=== PATIENT | female | born 1970 | race Caucasian/White ===

== ENCOUNTER 2020-05-08 17:16 | Emergency (ER) | payer OTHER, SELFPAY ==
[2020-05-08 17:17] VITALS: BP 135/92; RESP 115; TEMP 36.2; O2SAT 99
[2020-05-08 18:04] LABS: Add Urine Microscopic? YES; Appearance Urine Cloudy (Clear); Bacteria Urine 4+ /hpf; Bilirubin Urine Negative (Negative); Blood Urine Negative (Negative); Color Urine Amber (Yellow); Glucose Urine UA Negative (Negative); Ketones Urine Negative (Negative); Leukocyte Esterase Ur 2+ LEU/UL (Negative); Mucus Urine Heavy /lpf; Nitrate Urine Positive (Negative); Protein Urine 1+ mg/dL (Negative); Specific Grav Ur 1.027 (1.001-1.035); Squamous Epithelial Cell Urine Many /hpf (Few); Urobilinogen Urine Negative mg/dL (<2.0); WBC Urine >75 /hpf
--- NOTE | 2020-05-08 18:12 | ED.ABDPAIN ---
HPI - Abdominal Pain General Chief Complaint: Urogenital-Female Stated Complaint: Kidney Infection Time Seen by Provider: 05/08/20 17:53 Source: patient Mode of arrival: ambulatory Limitations: no limitations History of Present Illness HPI narrative: Patient 49-year-old female who presents to emergency department for evaluation of burning with urination and vaginal irritation for the last several days with foul odor. Patient would like to be evaluated for possible vaginal infection. Patient notes some discomfort in the abdomen. Patient denies fever chills nausea vomiting. Patient is not been seen for this complaint nor she taken anything for her symptoms Related Data Allergies Allergy/AdvReac Type Severity Reaction Status Date / Time No Known Allergies Allergy Mild Unverified 05/08/20 17:23 Review of Systems Review of Systems: All systems reviewed & are unremarkable except as noted in HPI and below PMFSH Social History Social History (Updated 05/08/20 @ 18:12 by Zechariah Donnelly PA-C) Smoking status: Never smoker Gender identity (if verbalized by the patient): Female Exam Narrative: Exam Narrative: GENERAL: Well-appearing, well-nourished, and in no acute distress. HEAD: Normocephalic, atraumatic. EYES: PERRLA and EOMI. ENT: Nares clear, no rhinorrhea or epistaxis. Mucous membranes moist. CHEST: Clear to auscultation. No respiratory distress. No wheezes rales or rhonchi HEART: Regular rate and rhythm. No murmur heard. Normal peripheral pulses. ABDOMEN: Soft, nontender, nondistended EXTREMITIES: Normal range of motion. No edema. SKIN: Warm, dry, no rash. NEURO: No focal deficits. Alert and oriented x3. PSYCH: Normal mood and affect. Course Course Emergency Course: Patient in the room at this time aware of case findings treatment plan and diagnosis agreeing to follow-up as instructed or to return if symptoms worsen or concerns patient is afebrile nontoxic-appearing no distress urinalysis revealed a urinary tract infection patient will be treated for this patient was also tested for STDs and will be given gynecological referral and provided with reasons to return and is felt appropriate for outpatient reevaluation Vital Signs Vital signs: Vital Signs Temperature 97.1 F L 05/08/20 17:17 Respiratory Rate 115 H 05/08/20 17:17 Blood Pressure 135/92 H 05/08/20 17:17 Pulse Oximetry 99 05/08/20 17:17 Temperature 97.1 F L 05/08/20 17:17 Respiratory Rate 115 H 05/08/20 17:17 Blood Pressure 135/92 H 05/08/20 17:17 Pulse Oximetry 99 05/08/20 17:17 MDM - Abdominal Pain MDM Narrative Medical decision making narrative: Patient presented with lower abdominal discomfort vaginal symptoms was evaluated will be treated for urinary tract infection felt appropriate for outpatient reevaluation given reasons to return Lab Data Labs: Lab Results 05/08/20 05/08/20 05/08/20 Range/Units 17:36 18:31 18:31 Urine Color Beata (Yellow) Urine Appearance Cloudy H (Clear) Urine pH 5.0 (5.0-9.0) Ur Specific [place] 1.027 (1.001-1.035) Urine Protein 1+ H (Negative) mg/dL Urine Glucose (UA) Negative (Negative) mg/dL Urine Ketones Negative (Negative) mg/dL Ur Blood (Man) Negative (Negative) Urine Nitrate Positive H (Negative) Urine Bilirubin Negative (Negative) Urine Urobilinogen Negative (<2.0) mg/dL Leukocyte Esterase Rfl 2+ H (Negative) CHRISTOPHER/UL Urine RBC 6-10 H (0-2) /hpf Urine WBC >75 H /hpf Ur Squamous Epith Cells Many H (Few) /hpf Urine Bacteria 4+ H /hpf Urine Mucus Heavy H /lpf C.trachomatis RNA (TMA) Pending N.gonorrhoeae RNA (TMA) Pending Trichomonas Direct ID Negative (Negative) UCG Bedside Result Negative Reference Range: Negative Discharge Plan Discharge Clinical Impression: Urinary tract infection Patient Disposi
[2020-05-08] MEDS: cefTRIAXone 1 GM VIAL IM (19:03)
--- NOTE | 2020-05-08 19:04 | PC.NURSE ---
Lidocaine used for Rocephin IM injection
[2020-05-08 19:42] VITALS: BP 131/93; PULSE 117; RESP 18; O2SAT 96
== END 2020-05-08 19:41 | disposition home or self-care (01) ==
PROVIDERS: Emergency Medicine; Emergency Medicine Emergency Medical Services; Emergency Provider Emergency Medicine
DX: N39.0 Urinary tract infection, site not specified (principal)
CPT/HCPCS: 81001; 81025; 87070; 87077; 87086; 87088; 87186; 87491; 87591; 87808; 96372; 99284; J0696

== ENCOUNTER 2020-06-17 19:03 | Emergency (ER) | payer OTHER, SELFPAY ==
[2020-06-17 19:05] VITALS: BP 113/70; PULSE 104; RESP 20; TEMP 35.7; O2SAT 95
[2020-06-17 19:43] LABS: Add Urine Microscopic? YES; Appearance Urine Cloudy (Clear); Bacteria Urine Trace /hpf; Bilirubin Urine Negative (Negative); Blood Urine 3+ (Negative); Color Urine Amber (Yellow); Glucose Urine UA Negative (Negative); Ketones Urine Negative (Negative); Leukocyte Esterase Ur 2+ LEU/UL (Negative); Mucus Urine Heavy /lpf; Nitrate Urine Negative (Negative); Protein Urine 2+ mg/dL (Negative); Specific Grav Ur 1.023 (1.001-1.035); Squamous Epithelial Cell Urine Many /hpf (Few); WBC Urine 31-50 /hpf
--- NOTE | 2020-06-17 22:35 | ED.FEMALEGU ---
HPI - Female Genitourinary General Chief complaint: Urogenital-Female Stated complaint: frequent burning urination Time Seen by Provider: 06/17/20 22:09 Source: patient Mode of arrival: ambulatory Limitations: no limitations History of Present Illness HPI Narrative: 49-year-old female comes into the emergency department with complaints of burning tingling and increased frequency with urination. Patient is also endorsing some blood in her urine as well as pelvic pain. Patient states that this has been going on for the last couple of days. She states that she was seen here for this previously but never followed up and never took her medications. Patient also inquires about an STD test that was performed while she was here. Related Data Allergies Allergy/AdvReac Type Severity Reaction Status Date / Time No Known Allergies Allergy Mild Unverified 05/08/20 17:23 Review of Systems Review of Systems: Narrative: CONSTITUTIONAL: Denies fever, chills, or sweats. EYES: Denies visual changes, redness, or discharge. ENT: Denies rhinorrhea, congestion, sore throat, or otalgia. CARDIOVASCULAR: Denies chest pain, palpitations, or edema. RESPIRATORY: Denies cough or dyspnea. GASTROINTESTINAL: Denies abdominal pain, nausea, vomiting, or diarrhea. GENITOURINARY: Endorses dysuria and hematuria. SKIN: Denies rash or itching. MUSCULOSKELETAL: Denies back pain, joint pain, or myalgia. NEUROLOGIC: Denies headache, numbness, dizziness, or weakness. PSYCHIATRIC: Denies anxiety or depression. [facility] Social History Social History Smoking status: Never smoker Gender identity (if verbalized by the patient): Female Exam Narrative: Exam Narrative: GENERAL: Well-appearing, well-nourished, and in no acute distress. HEAD: Normocephalic, atraumatic. EYES: PERRLA and EOMI. ENT: Nares clear, no rhinorrhea or epistaxis. Mucous membranes moist. NECK: Supple. No adenopathy or masses. No carotid bruits or JVD CHEST: Clear to auscultation. No respiratory distress. No wheezes rales or rhonchi HEART: Regular rate and rhythm. No murmur heard. Normal peripheral pulses. ABDOMEN: Soft, nontender, nondistended, normal active bowel sounds. EXTREMITIES: Normal range of motion. No edema. SKIN: Warm, dry, no rash. NEURO: No focal deficits. Alert and oriented x3. PSYCH: Normal mood and affect. Course Vital Signs Vital signs: Vital Signs Temperature 35.7 C L 06/17/20 19:05 Pulse Rate 104 H 06/17/20 19:05 Respiratory Rate 20 06/17/20 19:05 Blood Pressure 113/70 06/17/20 19:05 Pulse Oximetry 95 06/17/20 19:05 Temperature 35.7 C L 06/17/20 19:05 Pulse Rate 104 H 06/17/20 19:05 Respiratory Rate 20 06/17/20 19:05 Blood Pressure 113/70 06/17/20 19:05 Pulse Oximetry 95 06/17/20 19:05 MDM - Female Genitourinary MDM Narrative Medical decision making narrative: In brief this 49-year-old female came into the emergency department with complaints of dysuria and hematuria. Review of the patient's urinary specimen does show signs of a likely infection. Review of the computer data shows that the patient was negative for common STDs that were tested for. Her recent urine culture and April did show a infection with Klebsiella pneumonia which was intermediate resistance to Macrobid. We will treat with Bactrim in favor of this. Patient recommended to follow-up with her primary care physician. Differential Diagnosis Differential diagnosis: Likely urinary tract infection, bacterial vaginosis, trichomoniasis, cervicitis, ovarian cyst, vaginitis, ruptured ovarian cyst, cyst of Bartholin's gland and cystitis Lab Data Labs: Lab Results 06/17/20 Range/Units 19:27 Urine Color Beata (Yellow) Urine Appearance Cloudy H (Clear) Urine pH 5.0 (5.0-9.0) Ur Specific [place] 1.023 (1.001-1.035) Urine Protein 2+ H (Negative) mg/dL Urine Glucose (UA) Negative (Negative) mg/dL
[2020-06-17 23:00] VITALS: BP 117/68; PULSE 84; RESP 18; O2SAT 98
== END 2020-06-17 23:00 | disposition home or self-care (01) ==
PROVIDERS: Emergency Medicine; Emergency Provider Emergency Medicine
DX: N30.01 Acute cystitis with hematuria (principal)
CPT/HCPCS: 81001; 87077; 87086; 87088; 87186; 99283; A9270

== ENCOUNTER 2020-08-03 22:00 | Emergency (ER) | payer OTHER, SELFPAY ==
[2020-08-03 22:19] VITALS: BP 131/82; PULSE 104; RESP 18; TEMP 36.5; O2SAT 96
[2020-08-03 23:52] VITALS: BP 117/80; PULSE 89; RESP 19; O2SAT 99
--- NOTE | 2020-08-03 23:56 | ED.GENADULT ---
HPI - General Adult General Chief complaint: Unspecified Stated complaint: covid exposure, stuffy nose Time Seen by Provider: 08/03/20 23:51 Source: RN notes reviewed History of Present Illness HPI narrative: Patient presents to emergency department from home for possible COVID-19. Patient states she lives at home with her daughter who is been tested for COVID-19 patient states she has been having rhinorrhea for the past day she denies any fevers or chills cough chest pain shortness of breath abdominal pain nausea vomiting diarrhea or any other symptoms. Denies loss of taste or smell Related Data Home Medications Medication Instructions Recorded Confirmed No Home Medications 08/03/20 08/03/20 Allergies Allergy/AdvReac Type Severity Reaction Status Date / Time No Known Allergies Allergy Mild Verified 08/03/20 22:22 Review of Systems Review of Systems: Narrative: Gen.: Denies fevers or chills Eyes: Denies eye pain or visual change ENT: Reports rhinorrhea Respiratory: Denies shortness of breath or cough CV: Denies chest pain or palpitations GI: Denies abdominal pain nausea, emesis or diarrhea Musculoskeletal: Denies back pain or muscle pain Neuro: Denies numbness, tingling, weakness or focal weakness Skin: Denies rash Except as documented, all other systems reviewed and negative PMFSH Past Medical History Medical History (Updated 08/03/20 @ 23:58 by Nito Perez DO) Patient denies significant medical history Social History Social History Smoking status: Never smoker Gender identity (if verbalized by the patient): Female Exam Narrative: Exam Narrative: APPEARANCE: No acute distress, nontoxic, resting in bed EYES: EOMI HEENT: Normocephalic, atraumatic, nares patent RESPIRATORY: No respiratory distress Clear to auscultation bilaterally with no rhonchi wheezing or rales. CARDIOVASCULAR: Regular rate and rhythm without murmurs rubs or gallops. ABDOMINAL: Soft, nontender, nondistended, no rebound or guarding MUSCULOSKELETAl: Moves all extremities. No clubbing, cyanosis or edema. NEURO: Awake and alert. Following commands, speech normal, no focal deficits SKIN:: Warm, dry. No rashes lesions or abrasions PSYCHIATRIC: Normal affect/mood, Course Course Emergency Course: Discussed with patient results of workup and diagnosis. Discussed need for follow-up with primary care, proper use of medication, and reasons to return to the emergency department. Patient understands and agrees to current treatment plan Vital Signs Vital signs: Vital Signs Temperature 97.7 F 08/03/20 22:19 Pulse Rate 104 H 08/03/20 22:19 Respiratory Rate 18 08/03/20 22:19 Blood Pressure 131/82 08/03/20 22:19 Pulse Oximetry 96 08/03/20 22:19 Temperature 97.7 F 08/03/20 22:19 Pulse Rate 104 H 08/03/20 22:19 Respiratory Rate 18 08/03/20 22:19 Blood Pressure 131/82 08/03/20 22:19 Pulse Oximetry 96 08/03/20 22:19 Medical Decision Making Vital Signs Vital Signs: Vital Signs Temperature 97.7 F 08/03/20 22:19 Pulse Rate 104 H 08/03/20 22:19 Respiratory Rate 18 08/03/20 22:19 Blood Pressure 131/82 08/03/20 22:19 Pulse Oximetry 96 08/03/20 22:19 Temperature 97.7 F 08/03/20 22:19 Pulse Rate 104 H 08/03/20 22:19 Respiratory Rate 18 08/03/20 22:19 Blood Pressure 131/82 08/03/20 22:19 Pulse Oximetry 96 08/03/20 22:19 Discharge Plan Discharge Clinical Impression: Contact with and (suspected) exposure to covid-19 Patient Disposition: Home, Self-Care Condition: Stable Instructions: Antibiotic Form, COVID-19 (Coronavirus Disease 2019) (ED) Additional Instructions: Return for shortness of breath fever or any other symptoms of concern. You need to remain on self-isolation until the results of your COVID-19 test are returned Prescriptions: No Action No Home Medications RF: 0 Follow-up
[2020-08-04 19:43] LABS: SARS-CoV-2 RNA PCR Negative
== END 2020-08-04 00:23 | disposition home or self-care (01) ==
LOC: ANHED 08-04
PROVIDERS: Emergency Provider Emergency Medicine
DX: J34.89 Other specified disorders of nose and nasal sinuses (principal); Z20.822 Contact with and (suspected) exposure to COVID-19
CPT/HCPCS: 99283; C9803; U0003; U0005

== ENCOUNTER 2023-05-26 13:58 | Outpatient (CLI) | payer OTHER, SELFPAY ==
--- NOTE | 2023-05-26 14:16 | ECG_ITS ---
Measurements Intervals [place] Rate: 76 P: 31 VT: 151 QRS: -10 QRSD: 102 T: 22 QT: 421 QTc: 476 Interpretive Statements SINUS RHYTHM POOR R-WAVE PROGRESSION BORDERLINE LEFTWARD AXIS BORDERLINE ECG NO PREVIOUS ECG AVAILABLE FOR COMPARISON Electronically Signed On 05-27-2023 7:00:48 DIVORCE MEDIATOR by Melo Evangelista M.D.
[2023-05-26 15:04] LABS: Basophils Absolute Auto 0.1 K/mm3 (0.0-0.1); Basophils Percent Auto 0.7 % (0.2-1.2); Eosinophils Absolute Auto 0.5 K/mm3 (0-0.3); Eosinophils Percent Auto 3.9 % (0-4.4); Hematocrit 41.1 % (37.0-47.0); Hemoglobin 13.5 g/dL (12.0-15.0); Immature Granulocyte Absolute 0.06 K/mm3 (0.00-0.031); Immature Granulocyte Percent A 0.5 % (0-0.5); Lymphocytes Absolute Auto 4.03 K/mm3 (0.9-3.2); Mean Corpuscular HGB Conc 32.8 g/dl (32-36); Mean Corpuscular Hemoglobin 29.9 pg (26-34); Mean Corpuscular Volume 91.1 fl (80-100); Mean Platelet Volume 10.9 fl (7.4-10.4); Monocytes Absolute Auto 0.6 K/mm3 (0.1-0.6); Monocytes Percent Auto 5.1 % (2.6-8.5); Neutrophils Absolute Auto 6.9 K/mm3 (1.3-6.7); Neutrophils Percent Auto 56.8 % (45.5-73.1); Platelet Count Result 300 k/mm3 (150-375); Red Blood Count 4.51 M/mm3 (4.2-5.4); Red Cell Distribution Width 12.6 % (11.5-14.5); White Blood Count 12.2 K/mm3 (4.5-10.0)
[2023-05-26 15:12] LABS: Anion Gap 8 mmol/L (8-16); Blood Urea Nitrogen 8 mg/dL (7-17); Calcium 9.3 mg/dL (8.4-10.2); Carbon Dioxide 25 mmol/L (22-30); Chloride 106 mmol/L (98-107); Estimated Glomerular Filt Rate > 60; Glucose 96 mg/dL (65-110); Sodium 139 mmol/L (137-145)
[2023-05-26 15:43] LABS: Appearance Urine Clear (Clear); Bilirubin Urine Negative (Negative); Blood Urine Negative (Negative); Color Urine Yellow (Yellow); Glucose Urine UA Negative (Negative); Ketones Urine Negative (Negative); Leukocyte Esterase Ur Negative LEU/UL (Negative); Nitrate Urine Negative (Negative); Protein Urine Negative (Negative); Urobilinogen Urine 0.2 mg/dL (<2.0)
[2023-05-26 15:53] LABS: Add Urine Microscopic? NO
== END 2023-05-26 13:59 | disposition home or self-care (01) ==
LOC: ANHLAB 14:00
PROVIDERS: PCP Family Medicine; Visit Provider Orthopaedic Surgery
DX: R53.83 Other fatigue (principal); I10 Essential (primary) hypertension; M16.11 Unilateral primary osteoarthritis, right hip; R94.31 Abnormal electrocardiogram [ECG] [EKG]
CPT/HCPCS: 36415; 80048; 81003; 85025; 93005

== ENCOUNTER 2023-06-09 12:35 | Outpatient (CLI) | payer OTHER, SELFPAY ==
--- NOTE | ~2023-06-09 | CT_ITS ---
EXAMINATION: CT hip RT wo con DATE: 06/09/2023 12:58 INDICATION: Right hip osteoarthritis. Surgical planning. TECHNIQUE: Computed tomography (CT) of the right hip was performed without intravenous contrast. Auto mated exposure control and iterative reconstruction technique were employed. The dose-length product was 463.21 mGy-cm. COMPARISON: Pelvis and right hip radiographs 05/26/2023 FINDINGS: There is a 2.6 cm cyst in right ovary, likely benign. Bone alignment is normal. No fracture . There is advanced right hip osteoarthritis including bone volume loss of the acetabulum. IMPRESSION: 1. Advanced right hip osteoarthritis. Reviewed, dictated and finalized at location A. [employer] OPERATOR CHIEF
== END 2023-06-09 12:36 | disposition home or self-care (01) ==
PROVIDERS: PCP Family Medicine; Visit Provider Orthopaedic Surgery
DX: M16.11 Unilateral primary osteoarthritis, right hip (principal)
CPT/HCPCS: 73700

== ENCOUNTER 2023-07-25 13:42 | Outpatient (CLI) | payer OTHER, SELFPAY ==
[2023-07-25 15:43] LABS: Appearance Urine Clear (Clear); Bilirubin Urine Negative (Negative); Blood Urine Negative (Negative); Color Urine Yellow (Yellow); Glucose Urine UA Negative (Negative); Ketones Urine Negative (Negative); Leukocyte Esterase Ur Negative LEU/UL (Negative); Nitrate Urine Negative (Negative); Protein Urine Negative (Negative); Urobilinogen Urine 0.2 mg/dL (<2.0)
[2023-07-25 15:51] LABS: Basophils Absolute Auto 0.1 K/mm3 (0.0-0.1); Basophils Percent Auto 0.6 % (0.2-1.2); Eosinophils Absolute Auto 0.4 K/mm3 (0-0.3); Eosinophils Percent Auto 3.2 % (0-4.4); Hematocrit 41.9 % (37.0-47.0); Hemoglobin 13.3 g/dL (12.0-15.0); Immature Granulocyte Absolute 0.06 K/mm3 (0.00-0.031); Immature Granulocyte Percent A 0.5 % (0-0.5); Lymphocytes Absolute Auto 5.08 K/mm3 (0.9-3.2); Lymphocytes Percent Auto 40.3 % (18.3-44.2); Mean Corpuscular HGB Conc 31.7 g/dl (32-36); Mean Corpuscular Hemoglobin 29.4 pg (26-34); Mean Corpuscular Volume 92.7 fl (80-100); Mean Platelet Volume 10.8 fl (7.4-10.4); Monocytes Absolute Auto 0.8 K/mm3 (0.1-0.6); Monocytes Percent Auto 6.7 % (2.6-8.5); Neutrophils Absolute Auto 6.1 K/mm3 (1.3-6.7); Neutrophils Percent Auto 48.7 % (45.5-73.1); Platelet Count Result 331 k/mm3 (150-375); Red Blood Count 4.52 M/mm3 (4.2-5.4); Red Cell Distribution Width 12.9 % (11.5-14.5); Specific Grav Ur 1.031 (1.001-1.035); White Blood Count 12.6 K/mm3 (4.5-10.0)
[2023-07-25 15:52] LABS: Add Urine Microscopic? NO
[2023-07-25 15:54] LABS: Albumin Level 4.5 g/dL (3.5-5.1); Anion Gap 9 mmol/L (4-12); Blood Urea Nitrogen 18 mg/dL (7-17); Calcium 9.3 mg/dL (8.4-10.2); Carbon Dioxide 25 mmol/L (22-30); Chloride 102 mmol/L (98-107); Estimated Glomerular Filt Rate > 60; Glucose 127 mg/dL (65-110); Potassium 3.4 mmol/L (3.4-5.0); Sodium 136 mmol/L (137-145)
[2023-07-25 15:56] LABS: Hemoglobin A1C 6.1 % (<5.7)
[2023-07-25 15:58] LABS: Prothrombin Time 13.5 Seconds (11.1-14.7)
[2023-07-25 15:59] LABS: Partial Thromboplastin Time 30.1 Seconds (22.3-36.8)
[2023-07-25 16:01] LABS: Urine Cotinine NEGATIVE
[2023-07-25 16:55] LABS: MRSA (PCR) NOT DETECTED (NOT DETECTE)
== END 2023-07-25 13:43 | disposition home or self-care (01) ==
LOC: ANHSURGERY 13:48
PROVIDERS: PCP Family Medicine; Visit Provider Orthopaedic Surgery
DX: M16.11 Unilateral primary osteoarthritis, right hip (principal); Z01.818 Encounter for other preprocedural examination
CPT/HCPCS: 80048; 80307; 81003; 82040; 83036; 85025; 85610; 85730; 86850; 86900; 86901; 87641

== ENCOUNTER 2023-08-04 18:56 | Observation (INO) | payer OTHER, SELFPAY ==
[2023-07-25 14:01] VITALS: BMI 34.2
--- NOTE | 2023-07-25 14:26 | PC.NURSE ---
Addendum entered by Harriet Jones RN 07/25/23 14:52: TYPO FOR SURGERY DATE, SHOULD READ 08/03/23. PT RELAYS UNDERSTANDING. Original Note: Report to the Outpatient Waiting Room, entrance under the green pavilion located off [facility], at time _6:00AM on date ___07/25/23____. Planned Procedure Time: __7:30AM . Time changes happen often and if your time is changed the preop area will call you the afternoon before. - You and your visitor will be asked to self-screen and do not enter if you have any COVID symptoms. - A mask is optional within the hospital at this time. Patients may have clear liquids (water, carbonated beverages, clear teas, apple juice) until 3 hours prior to surgery with a maximum of 20 ounces. - No food from midnight until time of surgery. Take the following medications with a SIP of water the morning of surgery: ___BUPROPION DO NOT STOP ANY OF YOUR OTHER PRESCRIPTION MEDICATIONS PRIOR TO SURGERY ?EXCEPT THE FOLLOWING Medications to discontinue per physician ____HOLD MELOXICAM & VITAMINS/SUPPLEMENTS 7 DAYS PRE-OP PER DR SHEPPARD LAST DOSE 07/26/23 Please no make-up, nail japanese, hairspray, perfume, deodorant, or body powder the day of surgery. No jewelry (including any body piercings) or valuables the day of surgery, leave them at home. Please take a shower or bath the night before, or the morning of, surgery with an antibacterial soap. Wear comfortable, loose fitting clothing. - Jewelry must be removed prior to entering the operating room. Rings and piercings that are not removed may be cut off. - The hospital will not accept responsibility for valuables. - Please leave all valuables, including medications, at home the day of surgery. If you are going home after surgery, a licensed tank wagon driver must drive you home. - NO public transportation without another adult if you receive anesthesia. - We recommend that an adult stay with you for 24 hours following discharge. - We also recommend that you do not drive, make important decision, drink alcoholic beverages, or take any drugs that were not prescribed by your health care provider for at least 24 hours after your discharge time. Follow any additional instructions given to you from your surgeon. If you or anyone in your household have experienced Covid symptoms in the past week, please notify your surgeon or the nurse liaison at the phone number below for possible testing. Telephone instructions given to ____PATIENT and asked if any additional questions and then verbalized understanding. Patient advised to call surgeon office or pre surgery nurse liaison [phone] if any additional questions.
[2023-07-25 14:51] VITALS: BP 115/71; PULSE 99; RESP 16; TEMP 37.1; O2SAT 99
[2023-08-03] VITALS (16 sets, daily range): BP systolic 99–149; BP diastolic 57–98; PULSE 76–99; RESP 12–20; TEMP 36.2–36.9; O2SAT 93–100
[2023-08-03] MEDS: ACETAMINOPHEN 500 MG TABLET 1000 MG PO (06:35)
[2023-08-03] MEDS: LACTATED RINGERS 1,000 ML 30 ML IV CONT ×2 (06:50→10:40)
--- NOTE | 2023-08-03 06:56 | WPDANESEPPF ---
Anes - Initial Pre Proc Eval Procedure: Operation Date: 08/03/23 07:30 Proposed Procedures p Right Total Hip Arthroplasty - Mayo Montalvo MD Date/Time: 08/03/23 06:56 Surgeon: Mayo Montalvo MD Pre Op Diagnosis: Right Hip DJD Patient Data Age: 53 Gender: F Height: 1.68 m Weight: 97.15 kg Last Vital Signs Temp 36.9 C 08/03/23 06:40 Pulse 99 08/03/23 06:40 Resp 16 08/03/23 06:40 BP 149/89 H 08/03/23 06:40 Pulse Ox 97 08/03/23 06:40 O2 Del Method Room Air 08/03/23 06:40 Allergies Allergy/AdvReac Type Severity Reaction Status Date / Time No Known Allergies Allergy Mild Verified 08/03/23 06:25 Home Medications Medication Instructions Recorded Confirmed Type meloxicam 15 mg tablet 15 mg PO DAILY #90 tabs 12/28/22 08/03/23 Rx cyclobenzaprine 10 mg tablet See Rx Instructions .Route 05/30/23 08/03/23 Rx .COMPLEX #90 tabs chlorhexidine gluconate 4 % 1 applic topical ONCE #237 mL 07/11/23 08/03/23 Rx topical liquid (Hibiclens) bupropion HCl 150 mg 24 hr tablet, 150 mg PO QAM 07/25/23 08/03/23 History extended release (Wellbutrin XL) magnesium 250 mg tablet 500 mg PO DAILY 07/25/23 08/03/23 History turmeric 400 mg capsule 800 mg PO DAILY 07/25/23 08/03/23 History Patient hx anesthesia problems: none Family hx anesthesia problems: none Results Review: All pre-operative results and documents have been reviewed as part of the pre-operative evaluation. [facility] Past Medical History Medical History Arthritis Bilateral carpal tunnel syndrome Depression Irritable bowel syndrome Left lateral epicondylitis Osteoarthritis Right hip pain Surgical History Surgical History History of History of hip surgery S/P total right hip arthroplasty Family History Family History Father Alcoholism Hypertension Heart disease Social History Social History Smoking status: Never smoker Alcohol intake: former Alcohol use details: QUIT ALCOHOL ~2018 Substance use: never Substance use type: crack/cocaine and methamphetamine Other substance usage details: HOSP OCTOBER 2022 METH ADDICTION.USED COCAINE PRIOR. Lack of Transportation: No Lack of Food: Never True Current Housing: I Have Housing Concerned About Future Housing: No Difficulty Paying Gas/Electric Bills: No Difficulty Paying for Meds: No Currently Unemployed: No Education: Don't Know Difficulty w/ Childcare or Family Care: No Living arrangements: with roommate(s) Additional living arrangements comments: S.O./ROOMMATE Occupation/Education: unemployed Gender identity (if verbalized by the patient): Female Spiritual care concerns: No Agree to blood products: Yes Anes - Eval Final PreProcedure Day of Procedure 08/03/23 06:56 Patient weight: obese Heart: regular rate and rhythm Lungs: clear to auscultation Airway: Mallampati scale class II Neurological: alert and oriented Last oral intake: >/= 8 hours ASA classification: III Emergent: no Anesthetic plan: proceed Anesthesia type and monitoring: general ETT and standard monitoring Results Review: All pre-operative results and documents have been reviewed as part of the pre-operative evaluation. Informed Consent: The patient's anesthetic plan and its attendant risks and benefits were discussed with the patient/family/POA. Questions were solicited and answers provided to the satisfaction of the patient/family/POA.
[2023-08-03] MEDS: TRANEXAMIC ACID 1,000MG/ISO100 1,000 MG/100 ML BAG 200 MG IVPB (07:04)
--- NOTE | 2023-08-03 07:10 | WPDHPUPDATE1 ---
History and Physical Update Update Date/Time: 08/03/23 07:10 History and Physical has been reviewed, including an updated exam of the patient. There are NO changes in the patient's condition. Risks, benefits, and alternatives have been discussed and questions answered. Patient agrees to proceed with procedure.
[2023-08-03] MEDS: ceFAZolin 2 GM/D5W 50 ML 2 GM/50 ML BAG IVPB ×3 (07:30→23:44)
[2023-08-03] MEDS: SODIUM CHLORIDE 0.9% IV 37.7 ML, MORPHINE SULFATE INJ (*CRX) 2 MG, ROPivacaine HCL 1% 2... INFILTRATE (08:42)
[2023-08-03] MEDS: TRANEXAMIC ACID 1,000 MG/10 ML AMPUL 1000 MG IV PUSH (10:04)
--- NOTE | 2023-08-03 10:45 | W.PM.PROC2 ---
Procedure Note - Detailed Date of Procedure 08/03/23 Pre-op Diagnosis Right Hip DJD Post-op Diagnosis Same Procedure Performed R DEVAN Surgeon Mayo Montalvo MD Anesthesia General Description of Procedure THE PATIENT WAS TAKEN TO THE OPERATING ROOM IN STABLE CONDITION AND WAS PLACED IN THE LATERAL DECUBITUS AND THE RIGHT LOWER EXTREMITY WAS PREPPED AND DRAPED IN THE STERILE FASHION. INCISION WAS MADE IN THE POSTERIOR LATERAL SIDE OF THE HIP, DOWN TO THE FASCIA LAYER. THE FASCIA WAS INCISED. THE HIP WAS EXPOSED. THE SHORT EXTERNAL ROTATORS WERE EXPOSED. THERE A LOT OF SCAR TISSUE FROM HER PREVIOUS PROCEDURE. THE SCIATIC NERVE WAS IDENTIFIED. INCISION WAS MADE THROUGH THE SHORT EXTERNAL ROTATORS AND THE CAPSULE OF THE HIP JOINT. THE HIP WAS DISLOCATED. AN OSTEOTOMY WAS MADE TO THE FEMORAL NECK ABOUT 1 CM PROXIMAL TO THE LESSER TROCHANTER. THE ACETABULUM WAS EXPOSED. THERE WAS SEVERE DJD SEEN. BEGINNING WITH A 44 REAMER THE ACETABULUM WAS REAMED TO 51 MM. A 5I MM TRIAL WAS PLACED IN 35 DEG OF ABDUCTION AND ANTEVERSION WAS IN ALIGNMENT WITH THE TRANS ACETABULAR LIGAMENT. THE FIT WAS EXCELLENT. THE TRIAL WAS REMOVED. A 52 MM BIOMET G7 COMPONENT WAS THEN TAPPED IN TO PLACE IN 35 DEG OF ABDUCTION AND ANTEVERSION IN ALIGNMENT WITH THE TRANSVERSE ACETABULAR LIGAMENT. THE FIT WAS EXCELLENT. THE A DUAL MOBILITY LINER WAS THEN PLACED WITH EXCELLENT FIT. ACETABULAR LINER WAS PLACED AND CHECKED FOR STABILITY. NEXT THE FEMUR WAS PREPARED WITH INITIAL CANAL FINDER THEN SEQUENTIAL BROACHING WITH A TAPERLOC HIP SYSTEM, UNTIL AN 8 BROACH FIT WELL IN 15 OF ANTEVERSION. A 0 STANDARD OFFSET NECK WITH 36 MM HEAD AND DUAL MOBILITY TRIAL WAS PLACED. THE SHUCK TEST WAS EXCELLENT AND THE STABILITY IN FLEXION AND ROTATION WAS EXCELLENT. LEG LENGTHS WERE GROSSLY EQUAL. TRIALS WERE REMOVED. A BIOMET TAPERLOC 8 STEM WAS PLACED WITH A STANDARD OFFSET NECK. THE FIT WAS EXCELLENT IN 15 DEG OF ANTEVERSION. A 0 CERAMIC 36 MM FEMORAL HEAD WITH A DUAL MOBILITY POLYETHYLENE LINER WAS PLACED. THE HIP WAS TRIALED AND THE STABILITY WAS EXCELLENT WERE THE LEG LENGTHS AND THE SHUCK TEST. THE WOUND WAS IRRIGATED WITH STERILE BETADINE AND WATER FOR 3 MIN. THEN WASHED AGAIN. THE CAPSULE AND THE EXTERNAL ROTATORS WERE APPROXIMATED WITH NUMBER 1 VICRYL. THE FASCIA WITH No 2 QUIL AND THE SUB CUTANEOUS LAYER WITH 2-0 ABSORBABLE SUTURE WITH FRANCISCO TO APPROXIMATE THE SKIN. DERMABOND WAS PLACED AND STERILE DRESSING WAS APPLIED. PATIENT WAS PLACED BACK ON TO THE SUPINE POSITION AND WAS EXTUBATED Estimated Blood Loss 200 Complications No immediate complications Condition Stable Disposition PACU
[2023-08-03] MEDS: KETOROLAC 30 MG/ML VIAL (*BKC) IV PUSH (11:01)
--- NOTE | 2023-08-03 12:49 | ADMGEN ---
This patient, Kezia Murray, was admitted to 3 [facility] Surg Room 315-02. Patient/family oriented to hospital policies and general routines including ID bracelet, bed and alarms, visiting hours, pain management, procedures, bathroom and other care routines, personal items, smoking policy, room service/diet, and visiting hours. Information on how to activate the Rapid Response Team has been discussed. Patient/Family are encouraged to report perceived risks to care and to ask questions if they do not understand what they are told or what they should do.
[2023-08-03] MEDS: ASPIRIN 325 MG ENTERIC TABLET PO ×2 (13:21→20:47)
[2023-08-03] MEDS: SENNA/DOCUSATE SODIUM TABLET 2 TAB PO ×2 (13:21→17:21)
[2023-08-03] MEDS: KETOROLAC 15 MG/ML VIAL (*BKC) IV PUSH ×3 (13:21→23:45)
[2023-08-03] MEDS: polyethylene glycoL 3350 17 GM POWD.PACK PO (13:21)
[2023-08-03] MEDS: FAMOTIDINE 20 MG TABLET PO ×2 (13:21→20:48)
[2023-08-03] MEDS: ONDANSETRON INJ 4 MG/2 ML VIAL IV PUSH (17:23)
[2023-08-03] MEDS: HYDROcodone/acetaminophen (*CRX) 7.5-325 MG TABLET 1 TAB PO (18:07)
[2023-08-03] MEDS: HYDROcodone/acetaminophen (*CRX) 7.5-325 MG TABLET 2 TAB PO (22:19)
[2023-08-03] MEDS: SODIUM CHLORIDE 0.9% IV 100 ML (23:45)
--- NOTE | ~2023-08-04 | XR_ITS ---
EXAMINATION: XR hip RT 1V DATE: 08/03/2023 10:53 INDICATION: Postoperative evaluation following right total hip arthroplasty TECHNIQUE: Anteroposterior view of the right hip was obtained. COMPARISON: CT dated 06/09/2023 FINDINGS: Interval placement of a noncemented right total hip arthroplasty which appears well seated in near an atomic alignment. Skin lexy and expected subcutaneous gas at the postoperative bed. No fractures identified. IMPRESSION: 1. Right total hip arthroplasty, negative for postoperative purposes. Reviewed, dictated and finalized at location B.
[2023-08-04 02:20] VITALS: BP 126/62; PULSE 79; RESP 16; TEMP 36.6; O2SAT 99
[2023-08-04 06:20] VITALS: BP 112/67; PULSE 90; RESP 16; TEMP 36.2; O2SAT 92
[2023-08-04] MEDS: KETOROLAC 15 MG/ML VIAL (*BKC) IV PUSH ×2 (06:20→12:23)
[2023-08-04 07:23] LABS: Basophils Absolute Auto 0.1 K/mm3 (0.0-0.1); Basophils Percent Auto 0.4 % (0.2-1.2); Eosinophils Absolute Auto 0.1 K/mm3 (0-0.3); Eosinophils Percent Auto 0.3 % (0-4.4); Hematocrit 30.5 % (37.0-47.0); Hemoglobin 9.6 g/dL (12.0-15.0); Immature Granulocyte Absolute 0.09 K/mm3 (0.00-0.031); Immature Granulocyte Percent A 0.6 % (0-0.5); Lymphocytes Absolute Auto 3.01 K/mm3 (0.9-3.2); Mean Corpuscular HGB Conc 31.5 g/dl (32-36); Mean Corpuscular Hemoglobin 29.5 pg (26-34); Mean Corpuscular Volume 93.8 fl (80-100); Mean Platelet Volume 11.3 fl (7.4-10.4); Monocytes Absolute Auto 1.5 K/mm3 (0.1-0.6); Monocytes Percent Auto 10.1 % (2.6-8.5); Neutrophils Absolute Auto 9.7 K/mm3 (1.3-6.7); Neutrophils Percent Auto 67.6 % (45.5-73.1); Platelet Count Result 231 k/mm3 (150-375); Red Blood Count 3.25 M/mm3 (4.2-5.4); Red Cell Distribution Width 13.2 % (11.5-14.5); White Blood Count 14.3 K/mm3 (4.5-10.0)
[2023-08-04 07:47] LABS: Anion Gap 6 mmol/L (4-12); Blood Urea Nitrogen 14 mg/dL (7-17); Calcium 8.6 mg/dL (8.4-10.2); Carbon Dioxide 26 mmol/L (22-30); Chloride 104 mmol/L (98-107); Estimated CRCL calculation 83 ml/min; Estimated Glomerular Filt Rate > 60; Glucose 127 mg/dL (65-110); Potassium 3.8 mmol/L (3.4-5.0); Sodium 136 mmol/L (137-145)
--- NOTE | 2023-08-04 07:57 | P.PNAN_ITS ---
Anes - Prog Note Post-Op Date/Time: 08/04/23 07:57 Cardiovascular status: normal Respiratory status: normal Airway patency: baseline Mental status: baseline Post-Op hydration status: normal Vital Signs: Last Vital Signs Temp 36.2 C L 08/04/23 06:20 Pulse 90 08/04/23 06:20 Resp 16 08/04/23 06:20 BP 112/67 08/04/23 06:20 Pulse Ox 92 08/04/23 06:20 O2 Del Method Room Air 08/03/23 20:00 O2 Flow Rate 8 08/03/23 11:10 Pain Score (VAS): 07/02 I/O: Intake & Output 08/03/23 08/03/23 08/04/23 15:59 23:59 07:59 Intake Total 300 168 Balance 300 168 Laboratory Tests 08/04/23 06:39 08/04/23 06:39 08/04/23 06:39 WBC 14.3 H RBC 3.25 L Hgb 9.6 L D Hct 30.5 L MCV 93.8 MCH 29.5 MCHC 31.5 L RDW 13.2 Plt Count 231 MPV 11.3 H Immature Gran % (Auto) 0.6 H Neut % (Auto) 67.6 Lymph % (Auto) 21.0 [place] % (Auto) 10.1 H Eos % (Auto) 0.3 Baso % (Auto) 0.4 Lymph # (Auto) 3.01 [place] # (Auto) 1.5 H Eos # (Auto) 0.1 Baso # (Auto) 0.1 Abs Immat Gran (auto) 0.09 H Absolute Neuts (auto) 9.7 H Absolute Nucleated RBC 0.000 Nucleated RBC % 0.0 Sodium 136 L Potassium 3.8 Chloride 104 Carbon Dioxide 26 Anion Gap 6 BUN 14 Creatinine 0.80 Estim Creat Clear Calc 83 Estimated GFR > 60 Glucose 127 H Calcium 8.6 Post-procedural complaints: none Patient Feedback: Patient satisfied with anesthetic care.
[2023-08-04] MEDS: ASPIRIN 325 MG ENTERIC TABLET PO ×2 (08:51→20:29)
[2023-08-04] MEDS: FAMOTIDINE 20 MG TABLET PO ×2 (08:51→20:29)
[2023-08-04] MEDS: polyethylene glycoL 3350 17 GM POWD.PACK PO (08:51)
[2023-08-04] MEDS: ceFAZolin 2 GM/D5W 50 ML 2 GM/50 ML BAG IVPB (08:51)
[2023-08-04] MEDS: buPROPion HCL XL (24 HR) 150 MG TABCR PO (08:51)
[2023-08-04] MEDS: SENNA/DOCUSATE SODIUM TABLET 2 TAB PO ×2 (08:51→17:18)
--- NOTE | 2023-08-04 12:27 | PM.PNORT ---
Progress Note: A&P Assessment and Plan (1) S/P total right hip arthroplasty: Code(s): Z96.641 - Presence of right artificial hip joint Status: Acute Assessment and Plan: POD #1 : Right DEVAN Continue PT/OT. WBAT. Walker. HIGH FALL RISK. Continue pain control. Ice Hip. Protect skin. DVT prophylaxis with Aspirin. SCDs. Incentive Spirometry Use reviewed. Monitor Dressing. Change prior to discharge. Bowel Regimen. Dispo: Home with Home Health pending progress with PT/OT Plan Reviewed history, exam, radiographs and current labs with attending MD and covering surgeon, Dr. Montalvo, who agrees with current plan as indicated above. No further recommendations from Dr. Montalvo at this time. Subjective Subjective Date/Time Seen: 08/04/23 12:27 Post Op day: 1 Interval history: POD #1: Right DEVAN Patient doing well. Pain well controlled. No concerns. Review of Systems Review of Systems: All systems reviewed & are unremarkable except as noted in HPI and below Constitutional: Constitutional: Denies chills, Denies fever(s), Denies headache(s), Denies lethargy and Reports weakness ENT: Denies headache(s) Cardiovascular: Cardiovascular: Denies chest pain, Denies diaphoresis, Denies lightheadedness, Denies palpitations, Denies dyspnea and Denies dyspnea on exertion Respiratory: Respiratory: Denies cough, Denies dyspnea and Denies dyspnea on exertion Gastrointestinal: Gastrointestinal: Denies constipation, Denies diarrhea, Denies nausea and Denies vomiting Genitourinary: Genitourinary: Reports urinary frequency, Denies dysuria and Denies urinary hesitancy Musculoskeletal: Musculoskeletal: Reports joint swelling (Right Hip ) and Reports limited range of motion (Right Hip due to recent surgery ) Neurologic: Denies headache(s) and Reports weakness Endocrine: Endocrine: Denies palpitations Exam Const: General: comfortable and no acute distress Resp: Effort & Inspection: normal respiratory effort Cardio: Rate: regular rate Rhythm: regular rhythm GI: Inspection: non-distended Skin: General skin exam: normal color Other: Incision right hip c/d/i. Surrounding tissue without redness/warmth. Mild swelling consistent with recent surgery. No drainage. Neuro: Cognition (Neuro): normal cognition Speech: normal speech Extrem: Right lower extremity: normal to inspection, normal capillary refill, hip/thigh Details: tenderness Location: of the hip (Thigh soft ) Location: laterally and anteriorly, swelling Location: at the hip, abnormal ROM (limited consistent with recent surgery ) Details: pain with active ROM during and pain with passive ROM during and other (Incision c/d/i. ); no deformity and no unusual warmth, knee Details: normal to inspection; no tenderness and no swelling, lower leg (Negative Ladarius's Sign ) Details: normal to inspection and no edema; no tenderness, ankle (+ankle dorsiflexion/plantarflexion) Details: normal to inspection and no edema; no tenderness, no swelling and no ecchymosis and foot Details: normal capillary refill, toes with normal ROM, vascular exam Details: dorsalis pedis pulse present and motor-sensory exam Details: light-touch normal; no tenderness Objective Data Vital Signs Vital Signs: Vital Signs - 24 hr 08/03/23 12:30 08/03/23 14:41 08/03/23 12:45 Temperature 36.3 C L Pulse Rate 94 77 Respiratory Rate 16 16 Blood Pressure 112/85 113/57 L Pulse Oximetry 94 100 Oxygen Delivery Room Air Room Air 08/03/23 13:00 08/03/23 13:30 08/03/23 14:30 Temperature 36.5 C 36.5 C 36.3 C L Pulse Rate 87 98 91 Respiratory Rate 16 16 16 Blood Pressure 114/76 110/71 99/62 L Pulse Oximetry 98 97 98 Oxygen Delivery 08/03/23 16:00 08/03/23 22:20 08/04/23 02:20 Temperature 36.2 C L 36.4 C L 36.6 C Pulse Rate 86 76 79 Respiratory Rate 18 17 16 Blood Pressure 132/98 H 108/61 126/62 Pulse Oximetry 96 96 99 Oxygen Delivery 08/03/23 20:00 08/04/23 06:20 Tem
[2023-08-04 14:20] VITALS: BP 116/67; PULSE 89; RESP 17; TEMP 36.4; O2SAT 98
[2023-08-04] MEDS: HYDROcodone/acetaminophen (*CRX) 7.5-325 MG TABLET 2 TAB PO (20:33)
[2023-08-04 21:10] VITALS: BP 100/60; PULSE 98; RESP 14; TEMP 36.7; O2SAT 94
[2023-08-05 05:42] VITALS: BP 115/67; PULSE 96; RESP 13; TEMP 36.3; O2SAT 92
[2023-08-05] MEDS: HYDROcodone/acetaminophen (*CRX) 7.5-325 MG TABLET 2 TAB PO ×2 (06:37→15:40)
[2023-08-05] MEDS: polyethylene glycoL 3350 17 GM POWD.PACK PO (08:35)
[2023-08-05] MEDS: buPROPion HCL XL (24 HR) 150 MG TABCR PO (08:35)
[2023-08-05] MEDS: SENNA/DOCUSATE SODIUM TABLET 2 TAB PO (08:35)
[2023-08-05] MEDS: ASPIRIN 325 MG ENTERIC TABLET PO (08:35)
[2023-08-05] MEDS: FAMOTIDINE 20 MG TABLET PO (08:35)
--- NOTE | 2023-08-05 09:58 | PM.PNORT ---
Progress Note: A&P Assessment and Plan (1) S/P total right hip arthroplasty: Code(s): Z96.641 - Presence of right artificial hip joint Status: Acute Assessment and Plan: POD #2: Right DEVAN Continue PT/OT. WBAT. Walker. HIGH FALL RISK. Continue pain control. Ice Hip. Protect skin. DVT prophylaxis with Aspirin. SCDs. Incentive Spirometry Use reviewed. Monitor Dressing. Change prior to discharge. Bowel Regimen. Dispo: Home with Home Health today Plan Reviewed history, exam, radiographs and current labs with attending MD and covering surgeon, Dr. Montalvo, who agrees with current plan as indicated above. No further recommendations from Dr. Montalvo at this time. Subjective Subjective Date/Time Seen: 08/05/23 09:58 Post Op day: 2 Interval history: POD #2: Right DEVAN Patient doing well. Pain well controlled. Improvement with PT/OT. No new concerns today. Feels more prepared to be discharged. Review of Systems Review of Systems: All systems reviewed & are unremarkable except as noted in HPI and below Constitutional: Constitutional: Denies chills, Denies fever(s), Denies headache(s), Denies lethargy and Reports weakness ENT: Denies headache(s) Cardiovascular: Cardiovascular: Denies chest pain, Denies diaphoresis, Denies lightheadedness, Denies palpitations, Denies dyspnea and Denies dyspnea on exertion Respiratory: Respiratory: Denies cough, Denies dyspnea and Denies dyspnea on exertion Gastrointestinal: Gastrointestinal: Denies constipation, Denies diarrhea, Denies nausea and Denies vomiting Genitourinary: Genitourinary: Reports urinary frequency, Denies dysuria and Denies urinary hesitancy Musculoskeletal: Musculoskeletal: Reports joint swelling (Right Hip ) and Reports limited range of motion (Right Hip due to recent surgery ) Neurologic: Denies headache(s) and Reports weakness Endocrine: Endocrine: Denies palpitations Exam Const: General: comfortable and no acute distress Resp: Effort & Inspection: normal respiratory effort Cardio: Rate: regular rate Rhythm: regular rhythm GI: Inspection: non-distended Skin: General skin exam: normal color Other: Incision right hip c/d/i. Surrounding tissue without redness/warmth. Mild swelling consistent with recent surgery. No drainage. Neuro: Cognition (Neuro): normal cognition Speech: normal speech Extrem: Right lower extremity: normal to inspection, normal capillary refill, hip/thigh Details: tenderness Location: of the hip (Thigh soft ) Location: laterally and anteriorly, swelling Location: at the hip, abnormal ROM (limited consistent with recent surgery ) Details: pain with active ROM during and pain with passive ROM during and other (Incision c/d/i. ); no deformity and no unusual warmth, knee Details: normal to inspection; no tenderness and no swelling, lower leg (Negative Ladarius's Sign ) Details: normal to inspection and no edema; no tenderness, ankle (+ankle dorsiflexion/plantarflexion) Details: normal to inspection and no edema; no tenderness, no swelling and no ecchymosis and foot Details: normal capillary refill, toes with normal ROM, vascular exam Details: dorsalis pedis pulse present and motor-sensory exam Details: light-touch normal; no tenderness Objective Data Vital Signs Vital Signs: Vital Signs - 24 hr 08/04/23 14:20 08/04/23 21:10 08/05/23 05:42 Temperature 36.4 C L 36.7 C 36.3 C L Pulse Rate 89 98 96 Respiratory Rate 17 14 13 Blood Pressure 116/67 100/60 115/67 Pulse Oximetry 98 94 92 Intake/Output Intake/Output: Intake & Output 08/02/23 08/03/23 08/04/23 08/05/23 23:59 23:59 23:59 23:59 Intake Total 468 1128 400 Balance 468 1128 400 Meds/Results Medications: Active Medications Generic Name Dose Route Start Last Admin Trade Name Freq PRN Reason Stop Dose Admin Acetaminophen 650 mg 08/03/23 12:35 Acetaminophen 325 Mg Tablet PO Q6H PRN Mild Pain (1-3) or Fever Hydrocodon
--- NOTE | 2023-08-05 11:06 | PM.DS ---
DS: Admitting Diagnosis Discharge Date 08/05/23 Admitting Diagnosis Right Hip DJD DS: Discharge Diagnosis Discharge Diagnosis (1) S/P total right hip arthroplasty: Code(s): Z96.641 - Presence of right artificial hip joint Status: Acute Assessment and Plan: POD #2: Right DEVAN Continue PT/OT. WBAT. Walker. HIGH FALL RISK. Continue pain control. Ice Hip. Protect skin. DVT prophylaxis with Aspirin. SCDs. Incentive Spirometry Use reviewed. Monitor Dressing. Change prior to discharge. Bowel Regimen. Dispo: Home with Home Health today Plan Reviewed history, exam, radiographs and current labs with attending MD and covering surgeon, Dr. Montalvo, who agrees with current plan as indicated above. No further recommendations from Dr. Montalvo at this time. DS: Summary Hospital Course Reason for hospitalization: Right DEVAN Hospital Course: 53 year old female admitted s/p Right DEVAN for postoperative medical management, pain control and mobilization with PT/OT. Patient progressed well with PT/OT. Pain and vitals remained stable throughout. The patient has been cleared to be discharged home with home health at this time. All discharge care instructions reviewed at depth. New medications reviewed. Follow up planned for 3 weeks in the outpatient orthopedic clinic with Dr. Montalvo. Dr. Montalvo in agreement with safe discharge at this time. Status at Discharge Functional status at discharge: uses cane/walker Overall status at discharge: patient is progressing back to baseline Time Spent with Patient Time attestation: Total time spent providing and/or coordinating discharge services: Exam Const: General: comfortable and no acute distress Resp: Effort & Inspection: normal respiratory effort Cardio: Rate: regular rate Rhythm: regular rhythm GI: Inspection: non-distended Skin: General skin exam: normal color Other: Incision right hip c/d/i. Surrounding tissue without redness/warmth. Mild swelling consistent with recent surgery. No drainage. Neuro: Cognition (Neuro): normal cognition Speech: normal speech Extrem: Right lower extremity: normal to inspection, normal capillary refill, hip/thigh Details: tenderness Location: of the hip (Thigh soft ) Location: laterally and anteriorly, swelling Location: at the hip, abnormal ROM (limited consistent with recent surgery ) Details: pain with active ROM during and pain with passive ROM during and other (Incision c/d/i. ); no deformity and no unusual warmth, knee Details: normal to inspection; no tenderness and no swelling, lower leg (Negative Ladarius's Sign ) Details: normal to inspection and no edema; no tenderness, ankle (+ankle dorsiflexion/plantarflexion) Details: normal to inspection and no edema; no tenderness, no swelling and no ecchymosis and foot Details: normal capillary refill, toes with normal ROM, vascular exam Details: dorsalis pedis pulse present and motor-sensory exam Details: light-touch normal; no tenderness Discharge Plan Discharge Attending physician on discharge: Mayo Montalvo Discharging Clinician: Verónica Mccoy Anticipated Discharge Date/Time: 08/05/23 17:00 Patient Disposition: Home Health Service Activity: may shower, no driving and follow weight bearing status Diet: as tolerated Wound Care Instructions: follow printed instructions Discharge Instructions: Post Op Total Hip Replacement Instructions Dr. Mayo Montalvo [phone] Your dressing will be changed prior to your discharge. You will be sent home with one additional dressing to be changed on post op day 7 by the home health RN. You may remove the dressing on post op day 14. Your incision was closed with dermabond, allow the dermabond to fall off naturally once your dressing is removed. Do not pull at the dermabond or disrupt incision healing. You may shower with your dressing but do not submerge in a bath tub. Do not drive or operate machinery until you are re
[2023-08-05 14:49] VITALS: BP 116/65; PULSE 106; RESP 14; TEMP 36.6; O2SAT 98
== END 2023-08-05 18:15 | disposition home health service (06) ==
LOC: ANHSURGERY 18:58 → ANH3MEDSUR 18:58
PROVIDERS: Admitting Provider Orthopaedic Surgery; PCP Family Medicine; Visit Provider Orthopaedic Surgery
PROC: (CPT 27130; principal; 2023-08-03 07:30)
DX: M16.11 Unilateral primary osteoarthritis, right hip (principal); E66.9 Obesity, unspecified; Z68.34 Body mass index [BMI] 34.0-34.9, adult; F32.A Depression, unspecified; Z79.1 Long term (current) use of non-steroidal anti-inflammatories (NSAID); Z79.899 Other long term (current) drug therapy
CPT/HCPCS: 27130; 36415; 73501; 80048; 85025; 97110; 97116; 97161; 97165; 97530; 97535; A9270; C1713; G0378; G0379; J0171; J0690; J1100; J1170; J1885; J2250; J2270; J2405; J2704; J2795; J3010; J7120

== ENCOUNTER 2023-10-17 14:00 | Outpatient (RCR) | payer OTHER, SELFPAY ==
--- NOTE | 2023-09-07 16:43 | PTOPEVAL1 ---
Assessment and note entered by Risa Beasley, PT Evaluation Information Assessment Status Evaluation Diagnosis right hip replacement 08/02/2022 Therapy Conditions pain in right hip weakness other abnormalities of strength and mobility Onset 08/02/2022 Subjective Information From hospital went home and up 17 steps. Home health PT, nursing, etc. Stopped home health about a week ago. August 24 went to follow up and was released to go to out patient is follow Currently taking meloxicam and cyclobenzaprene Reports is able to do steps in reciprocal pattern PLOF: lives on second floor apartment, 17 steps with miguel a railing, amb without AD. Not currently working, but would like to go back work Pt feels bending is still largest liz as well as crossing legs. Reported Pain Level Pain Score 0: Self Report Assessment PT Clinical Summary Pt reports to outpatient physical therapy s/p R total hip replacement on 08/03/23 and 3 weeks of home health physical therapy. Pt currently ambulates with straight cane or no assistive device. Pt reports mild pain with current medication dosage and has been more active over the past week. Upon examination pt displayed slight gait abnormalities during the 2 min walk test such as decreased weight shift on R LE and lateral trunk lean over R LE in midstance phase but displayed good gait speed and step length. Pt current strength levels are reduced compared to non surgical side with gluteus medius strength being most notable as a 2+ /5. Pt displays functional ROM and has been performing all ADLs independently including stairs with a reciprocal pattern. Physical therapy is medical necessary to address post surgical deficits in R hip to return to functional level of unaffected LE. Plan of Care Interventions Electrical Stimulation,Gait Training,Hot Pack/Cold Pack,Manual Therapy,Neuro Re-education,Patient/ Caregiver Educati,Therapeutic Activities, Therapeutic Exercise,Self-Care/Home Management, Other PT Services Ind
--- NOTE | 2023-09-07 16:43 | OPREHPOC ---
Outpatient Therapy Plan of Care This is a Multidisciplinary Plan of Care that may contain components documented by all disciplines (PT, OT, and ST.) PT Problem 1 PT Problem #1 Knowledge Deficit PT Goal 1 Goal Pt will be independent in HEP Pt will verbalize understanding of diagnosis and prognosis Target Visit 6 PT Problem 2 PT Problem #2 Pain PT Goal 1 Goal Pt will report greatest pain level at 3/10 or less to improve ADLs and activities Target Visit 6 PT Goal 2 Goal Pt will report greatest pain level at 1/10 or less to improve ADLs and activities Target Visit 12 PT Problem 3 PT Problem #3 Impaired Strength PT Goal 1 Goal Pt will demo muscle grade of 3/5 or greater in the right gluteus medius for improved mobility and ambulation Target Visit 6 PT Goal 2 Goal Pt will demo 4/5 in gluteus rosa elena for improved mobility Target Visit 12 PT Problem 4 PT Problem #4 Impaired Gait PT Goal 1 Goal Pt will demo ambulation with equal stance time and resolution of lateral shift over RLE without assistive device Target Visit 12
--- NOTE | 2023-09-14 11:38 | PCPTNOTE ---
Pt entered the PT dept this date with a R hip limp. She states that she fell last night but did not think she hurt the hip replacement. Pt reported increase pain with walking since the fall. I called Dr. Montalvo's office on how to proceed. Rita set up an appt for tomorrow 09-15-23 ,1:00 FOR HIP X-ray. Pt to cancel PT for today. ADRIANNA
--- NOTE | 2023-09-28 12:09 | PCPTNOTE ---
Pt cancelled this date. AKS
--- NOTE | 2023-10-03 12:43 | PCPTNOTE ---
Pt C/C due to pink eye. AKS
--- NOTE | 2023-10-10 11:53 | PCPTNOTE ---
No call, No show reason unknown. Due to attendance policy and required participation pt has been discharged from PT at this time. Attempt to contact pt a number of times and was unsuccessful. Should pt need our services in the future pt can call MD and renew PT order. ADRIANNA
--- NOTE | 2023-10-13 11:35 | PCPTNOTE ---
Admitting Provider: Attending Provider: Mayo Montalvo MD Patient:Kezia Murray Date of :1970 Patient has not returned for any further treatments since 09/26/2023. Patient?s initial visit was on 09/07/2023 08:00 and she had a total of 5 visits with 2 no call no show appointments. e have attempted to contact patient without return communication. Therefore she will be discharged at this time per department policy. The goals have not been met. Thank you for referring this patient to [facility]. Please review, sign, date and return this discharge summary YOLANDA. I have been updated about the patient's current status and I agree with discharge from the above service at this time. Referring Physician Date
--- NOTE | 2023-10-25 11:54 | PCPTNOTE ---
Admitting Provider: Attending Provider: Mayo Montalvo MD Patient:Kezia Murray Date of :1970 Patient has not returned for any further treatments since 10/17/2023. Patient?s initial visit was on 09/07/2023 08:00 and she had a total of 6 visits without multiple cancels, and no-call no-shows. As of her last visit she demo'd that she had met all her therapy goals, her precautions were reinforced, and she was educated on the benefits vs disadvantages of continuation and cessation of therapy and this point in her rehab. The goals have been met. Thank you for referring this patient to [facility]. Please review, sign, date and return this discharge summary YOLANDA. I have been updated about the patient's current status and I agree with discharge from the above service at this time. Referring Physician Date
== END 2023-10-25 13:05 | disposition home or self-care (01) ==
LOC: ANHHIPT 14:00
PROVIDERS: PCP Family Medicine; Visit Provider Orthopaedic Surgery
DX: Z47.1 Aftercare following joint replacement surgery (principal); Z96.641 Presence of right artificial hip joint
CPT/HCPCS: 97110; 97116; 97140; 97161; 97530